=== PATIENT | male | born 1995 | race Caucasian/White ===

== ENCOUNTER 2018-02-23 12:11 | Emergency (ER) | payer SELFPAY ==
[2018-02-23 12:20] VITALS: BP 124/77
--- NOTE | 2018-02-23 12:41 | UC ---
Lower Extremity/Ankle HPI - HPI Summary HPI Summary: 22 y/o male presents to the urgent care c/o RT foot pain s/p running and stepping on a glass bottle last night. Pt reports he can bear weight w/ limping. He has bruising and swelling on the lateral side of his RT foot. He applied Ice, but he has not taking anything to alleviate symptoms. Pain is 8/ 10 w/ movement and walking, and 4/10 at rest. Pt denies numbness and tingling sensation over the RT foot, fever, calf pain, SOB, chest pain, abdominal pain, N /V/D - History of Current Complaint Chief Complaint: UCLowerExtremity Stated Complaint: FOOT INJURY Time Seen by Provider: 02/23/18 12:31 Hx Obtained From: Patient Onset/Duration: Sudden Onset, Lasting Days - 1 day, Still Present Severity Initially: Moderate Severity Currently: Moderate Pain Intensity: 8 Pain Scale Used: 0-10 Numeric Aggravating Factor(s): Ambulation Alleviating Factor(s): Rest, Ice Able to Bear Weight: Yes - Risk Factors Gout Risk Factors: Negative DVT Risk Factors: Estrogen Septic Arthritis Risk Factor: Negative - Allergies/Home Medications Allergies/Adverse Reactions: Allergies Allergy/AdvReac Type Severity Reaction Status Date / Time peanuts Allergy anaph Uncoded 02/23/18 12:20 PMH/Surg Hx/FS Hx/Imm Hx Previously Healthy: Yes Other Cancer History: Germ cell cancer - Surgical History Surgical History: Yes Surgery Procedure, Year, and Place: port placed amnd removed - Family History Known Family History: Positive: Cardiac Disease, Diabetes - Social History Occupation: Student Lives: With Family Alcohol Use: Weekly Substance Use Type: None Smoking Status (MU): Never Smoked Tobacco - Immunization History Vaccination Up to Date: Yes Review of Systems Constitutional: Negative Skin: Negative Eyes: Negative ENT: Negative Respiratory: Negative Cardiovascular: Negative Gastrointestinal: Negative Genitourinary: Negative Motor: Negative Neurovascular: Negative Musculoskeletal: Decreased ROM - RT foot, Other: - RT foot pain s/p injury Neurological: Negative Psychological: Negative Is Patient Immunocompromised?: No All Other Systems Reviewed And Are Negative: Yes Physical Exam - Summary Physical Exam Summary: Vital Signs Reviewed: Yes General : well developed, well nourished male adolescent w/o any apparent distress Eyes: Positive: Conjunctiva Clear - PERRLA, EOMI ENT: Positive: Normal ENT inspection, Hearing grossly normal, Pharynx normal, TMs normal Neck: Positive: Supple, Nontender, No Lymphadenopathy Respiratory: Positive: Chest non-tender, Lungs clear, Normal breath sounds, No respiratory distress Cardiovascular: Positive: RRR, No Murmur, Pulses Normal Abdomen Description: Positive: Nontender, No Organomegaly, Soft. Negative: CVA Tenderness (R), CVA Tenderness (L) Bowel Sounds: Positive: Present Musculoskeletal: Positive: Strength Intact, ROM Intact, No Edema, RT Foot/Toes: Pt is able to bear weight but ambulate with mild limping. RT foot :No surface trauma, positive bruising and swelling over the lateral side of the fifth metatarsal, merlin ulcers or break in skin integrity. The R foot is without obvious asymmetry or deformity when compared to the L foot. No bony step-off, Tenderness to palpation over the fifth metatarsal over the dorsal side and lateral side, no tenderness of hindfoot, Decrease plantar/dorsiflexion, inversion/eversion due to pain. Distal motor and neurovascular status are intact. Neurological Exam: Normal Psychological Exam: Normal Skin Exam: Normal Triage Information Reviewed: Yes Vital Signs: Initial Vital Signs Temp 98 F 02/23/18 12:16 Pulse 94 02/23/18 12:16 Resp 16 02/23/18 12:16 BP 124/77 02/23/18 12:16 Pulse Ox 100 02/23/18 12:16 Lower Extremity Course/Dx - Course Course Of Treatment: 22 y/o male presents to the urgent care c/o RT foot pain s/ p running and stepping on a glass bottle last night. Pt reports he can bear weight w/ limping. He has bruising and swelling on the lateral side of his RT foot. He applied Ice, but he has not taking anything to alleviate symptoms. Pain is 8/10 w/ movement and walking, and 4/10 at rest. Pt denies numbness and tingling sensation over the RT foot, fever, calf pain, SOB, chest pain, abdominal pain, N/V/D. Hx obtained. RT foot X-ray ordered, Impression: Nondisplaced fracture of the base of the fifth metatarsal. I cntacted Orthopedic director telecommunications Dr Anthony and he recommended immbolization of Pt's Rt foot w / a CAM-CASAREZ and crutches and f/u w/ him. Pt's foot immobilized with Cam- botth and given crutches. Pt given Ibuprofen Po at the clinic for pain. Pt tolerated well medication gicven by nurse. Advised RICE, and Rx Ibuprofen PO for pain,and f/u w/ Dr Anthony in 1 day for further evaluation and treatment. Pt understood and agreed with D/C instructions, Pt left the clinic hemodynamically stable and walking w/ the help of crutches. - Differential Dx/Diagnosis Differential Diagnosis/HQI/PQRI: Contusion, Dislocation, Fracture (Closed), Sprain, Strain, Tendonitis Provider Diagnoses: 1- Nondisplaced fracture of the base of RT fifth Metatarsal. 2- Rt foot pain s/p injury - Physician Notifications Discussed Patient Care With: Addy Anthony - DR Anthony recommended Immobilization of RT foot w/ a Cam-casarez and crutches for no weight bearing. Have Pt call his office for f/u appt. Discharge - Sign-Out/Discharge Documenting (check all that apply): Discharge/Admit/Transfer - D/C home - Discharge Plan Condition: Stable Disposition: HOME Prescriptions: Ibuprofen TAB* [Motrin TAB* 600 MG] 600 mg PO Q6H PRN #30 tab PRN Reason: Pain Patient Education Materials: Foot Fracture in Adults (ED) Referrals: [facility] [Outside] - If Needed Addy Anthony MD [Medical Doctor] - 1 Day Additional Instructions: 1-Please take medications as directed after meals to alleviate pain and swelling. 2-Please apply ice, keep your foot immobilized with the CAM-CASAREZ. Avoid weight bearing w/ the crutches 3- Please f/u with your Orthopedic Dr Anthony in 1 day for further evaluation and treatment. - Billing Disposition and Condition Condition: STABLE Disposition: HOME
--- NOTE | 2018-02-23 13:02 | RAD ---
HISTORY: Right foot pain status post injury COMPARISONS: None VIEWS: 3, Frontal, lateral, and oblique views of the right foot FINDINGS: BONE DENSITY: Normal. BONES: There is a nondisplaced fracture of the base of the fifth metatarsal with articular extension JOINTS: There is no arthropathy. ALIGNMENT: There is no dislocation. SOFT TISSUES: Unremarkable. OTHER FINDINGS: None. IMPRESSION: NONDISPLACED FRACTURE OF THE BASE OF THE FIFTH METATARSAL
[2018-02-23] MEDS ORDERED: Ibuprofen TAB* 400 MG PO ONE (13:08)
[2018-02-23] MEDS ORDERED: Ibuprofen TAB* 400 MG ONE (13:14)
== END 2018-02-23 13:35 | disposition home or self-care (01) ==
LOC: UCEAST 12:11
DX: S92.354A Nondisplaced fracture of fifth metatarsal bone, right foot, initial encounter for closed fracture (principal); W22.8XXA Striking against or struck by other objects, initial encounter; Y93.02 Activity, running; Y92.9 Unspecified place or not applicable; Z85.47 Personal history of malignant neoplasm of testis
CPT/HCPCS: 99213; A9270-GY; G0463